=== PATIENT | male | born 2000 | race American Indian/Alaskan Native ===

== ENCOUNTER 2021-11-14 13:55 | Emergency (ER) | payer SELFPAY ==
[2021-11-14 14:28] VITALS: BP 131/81
--- NOTE | 2021-11-14 14:37 | Emergency Department Report ---
ED Extremity Problem HPI - General Chief complaint: Skin/Abscess/Foreign Body Stated complaint: FINGER Source: patient Mode of arrival: Ambulatory Limitations: No Limitations - History of Present Illness Initial comments: 21-year-old male presents to the ER today with complaints of pain and swelling to the distal aspect of his left fourth finger. Onset was 3 days ago. He pete es any particular injury to his finger. He states that he does not bite his nail nor has he removed any Hainey recently. Patient states that he has been soaking in a warm water. He did drain small amount of pus from area but area is still swollen and decided to come to ED of have it checked. He reports no additional symptoms at this time MD Complaint: other (Left 4th finger pain and swelling) -: days(s) (3) Severity scale (0 -10): 0 - Related Data Previous Rx's Medication Instructions Recorded Last Taken Type Sulfamethoxazole/Trimethoprim 1 each PO BID #14 tab 11/14/21 Unknown Rx [Bactrim DS TAB] Allergies Allergy/AdvReac Type Severity Reaction Status Date / Time No Known Allergies Allergy Unverified 11/14/21 14:06 ED Review of Systems ROS: Stated complaint: FINGER Other details as noted in HPI Comment: All other systems reviewed and negative Constitutional: denies: chills, fever Eyes: denies: eye pain, eye discharge, vision change ENT: denies: ear pain, throat pain Respiratory: denies: cough, shortness of breath, wheezing Cardiovascular: denies: chest pain, palpitations Gastrointestinal: denies: abdominal pain, nausea, diarrhea, constipation, hematemesis, melena, hematochezia Genitourinary: denies: urgency, dysuria, testicular pain, testicular mass Musculoskeletal: joint swelling, arthralgia Skin: denies: rash, lesions, change in color, change in hair/nails, pruritus Neurological: denies: headache, weakness, numbness, paresthesias, abnormal gait, vertigo Psychiatric: denies: anxiety, depression, auditory hallucinations, visual hallucinations, homicidal thoughts, suicidal thoughts Hematological/Lymphatic: denies: easy bleeding, easy bruising, swollen glands ED Past Medical Hx - Past Medical History Previous Medical History?: No - Surgical History Additional Surgical History: KNEE - Medications Home Medications: Home Medications Medication Instructions Recorded Confirmed Last Taken Type Sulfamethoxazole/Trimethoprim 1 each PO BID #14 tab 11/14/21 Unknown Rx [Bactrim DS TAB] ED Physical Exam - General Limitations: No Limitations General appearance: alert, in no apparent distress - Head Head exam: Present: atraumatic, normocephalic, normal inspection - Eye Eye exam: Present: normal appearance, PERRL, EOMI Pupils: Present: normal accommodation - Neck Neck exam: Present: normal inspection, full ROM. Absent: meningismus - Respiratory Respiratory exam: Absent: respiratory distress - Cardiovascular Cardiovascular Exam: Present: regular rate - Expanded Upper Extremity Exam Left Hand L/R Back: 1 - There is mild swelling noted to the lateral nail fold. Slight bruising to it but there is no cellulitis. No fluctuance noted. No drainage noted. No streaking redness. Patient is forage motion of the finger. Cap refill normal. Sensation intact. - Neurological Exam Neurological exam: Present: alert, oriented X3, CN II-XII intact, normal gait - Psychiatric Psychiatric exam: Present: normal affect, normal mood - Skin Skin exam: Present: intact ED Course Vital Signs 11/14/21 14:12 Temperature 98.4 F Pulse Rate 64 Respiratory 18 Rate Blood Pressure 131/81 [Right] O2 Sat by Pulse 100 Oximetry Critical care attestation.: If time is entered above; I have spent that time in minutes in the direct care of this critically ill patient, excluding procedure time. ED Disposition Clinical Impression: Cellulitis, finger, Paronychia Disposition: 01 HOME / SELF CARE / HOMELESS Is pt being admited?: No Does the pt Need Aspirin: No Condition: Stable Instructions: Cellulitis, Adult, [id number], Fingertip Infection Additional Instructions: I recommend that you take the Bactrim as prescribed until completion. You can take Tylenol and/or ibuprofen for pain. Continue to apply warm compresses to the area. Return to the ER if your symptoms worsens or changes in any way. Prescriptions: Sulfamethoxazole/Trimethoprim [Bactrim DS TAB] 1 each PO BID #14 tab Referrals: TOÑO MALHOTRA MD [Referring] - 3-5 Days Time of Disposition: 14:37
== END 2021-11-14 15:00 | disposition home or self-care (01) ==
LOC: ED 13:55
DX: L03.012 Cellulitis of left finger (principal); Z79.899 Other long term (current) drug therapy
CPT/HCPCS: 99282